=== PATIENT | female | born 1940 | race Asian ===

== ENCOUNTER → 2019-02-03 | Outpatient (CLI) | payer MEDICARE, MEDICAID ==
[~2019-02-03] MED LIST: ASPI-556 PO; CAPT25TA3 PO; GLIP5 PO
== END | disposition home or self-care (01) ==
LOC: RADPV 14:40
PROVIDERS: ATTEND Internal Medicine
DX: M81.0 Age-related osteoporosis without current pathological fracture (principal); M85.88 Other specified disorders of bone density and structure, other site
CPT/HCPCS: 77080